=== PATIENT | female | born 1950 | race Caucasian/White ===

== ENCOUNTER 2025-06-20 09:58 | Observation (INO) ==
[2025-06-20 10:23] LABS: HCT - HEMATOCRIT 52.1 % (37.0-47.0); HGB - HEMOGLOBIN 17.2 g/dL (12.0-16.0); MEAN PLATELET VOLUME 9.9 fL (7.9-10.8); NRBC ABSOLUTE COUNT (AUTO) 0.00 x10^3/uL; NUCLEATED RED BLOOD CELLS AUTO 0.0 /100WBC; PLT - PLATELET COUNT 188 10^3/uL (130-450); RED CELL DISTRIBUTION WIDTH 14.2 % (12.0-15.0)
[2025-06-20 10:29] LABS: INR 1.0 (0.8-1.2); PT - PROTHROMBIN TIME 11.0 secs (9.9-12.6)
--- NOTE | 2025-06-20 10:35 | CT Report ---
PROCEDURE: CT Head W/O Stroke Protocol INDICATIONS: slurred speech, new, AMS TECHNIQUE: Noncontrast angled axial sections acquired from the foramen magnum to the vertex, with coronal reformats. For radiation dose reduction, the following was used: automated exposure control, adjustment of mA and/or kV according to patient size. COMPARISON: None FINDINGS: Image quality: Excellent. The ventricular system and cortical sulci demonstrate atrophy, consistent for patient's stated age. There are areas of hypodensity in the periventricular and subcortical white matter. There is no acute intra or extra-axial fluid collection. No acute hemorrhage, mass lesion or midline shift. Brainstem is unremarkable. Globes are symmetrical. Sinuses are aerated. Osseous structures are intact. IMPRESSION: 1. No acute intracranial process. 2. Mild atrophy and chronic microvascular ischemic changes. The above findings were discussed with the ordering physician on 06/20/2025 at 10:32 AM This study fulfills neurological imaging criteria for inclusion or exclusion of acute stroke therapies based on available published neurological imaging guidelines. Reviewed by: Gay Byrnes MD on 06/20/2025 10:33 AM PDT Approved by: Gay Byrnes MD on 06/20/2025 10:33 AM PDT Station ID: [id number]
[2025-06-20 10:36] LABS: ALT ALANINE AMINOTRANSFERASE 14.0 IU/L (10-60); AST ASPARTATE AMINOTRANSFERASE 21.0 IU/L (10-42); BUN - BLOOD UREA NITROGEN 12.0 mg/dL (6-20); CARBON DIOXIDE - CO2 28.0 mmol/L (21-32); CREATININE 0.8 mg/dL (0.6-1.3); GFR - MDRD 70.0 (>89)
--- NOTE | 2025-06-20 10:37 | CT Report ---
PROCEDURE: CT Angio Head/Neck INDICATIONS: CVA sx CONTRAST: OMNI 300 80 ML TECHNIQUE: After the administration of intravenous contrast, images werenacquired from the aortic arch through the [place]. 3-dimensional wyabruh-lffrllvkf-wglbywsfiv (MIP) and volume rendering reformats were acquired of the central intracranial vasculature and neck separately. COMPARISON: CT head 06/20/2025 FINDINGS: Image quality: Diagnostic. Cerebral CT Angiogram: Internal carotid arteries: No acute findings. Intracranial ICA are patent with no significant stenosis. No occlusion. No aneurysm. Anterior cerebral arteries: Unremarkable. No significant stenosis. No occlusion. No aneurysm. Middle cerebral arteries: Unremarkable. No significant stenosis. No occlusion. No aneurysm. Posterior cerebral arteries: Unremarkable. No significant stenosis. No occlusion. No aneurysm. Basilar artery: Unremarkable. No significant stenosis. No occlusion. No aneurysm. Vertebral arteries: Unremarkable as visualized. Dural venous sinuses: Unremarkable given phase of enhancement. Other: Arterial phase appearance of the brain parenchyma is unremarkable. Neck CT Angiogram: Internal carotid arteries: Unremarkable. No significant stenosis. No dissection or occlusion. Common carotid arteries: Unremarkable. No significant stenosis. No dissection or occlusion. External carotid arteries: Unremarkable. No occlusion. Vertebral arteries: Unremarkable. No significant stenosis. No dissection or occlusion. Aortic Arch and Mediastinum: Partially visualized aortic arch unremarkable without evidence of aneurysm. Origins of the great vessels unremarkable. Other: Arterial phase soft tissues of the neck and chest are unremarkable. IMPRESSION: Unremarkable CT angiogram of the head and neck The estimate of stenosis included in the report of the imaging study was calculated using the NASCET method Reviewed by: Gay Byrnes MD on 06/20/2025 10:35 AM PDT Approved by: Gay Byrnes MD on 06/20/2025 10:35 AM PDT Station ID: [id number]
[2025-06-20] MEDS: ASPIRIN CHEW 81 MG TABLET PO SCH (11:38)
[2025-06-20] MEDS: CLOPIDOGREL 75 MG TABLET PO SCH (11:38)
--- NOTE | 2025-06-20 12:01 | HISTORY & PHYSICAL EXAMINATION ---
Chief Complaint Chief Complaint Chief Complaint: slurred speech History of Present Illness Admitted From Admitted From:: home History Obtained From Records Reviewed: none available. History obtained from: patient and daughter History of Present Illness HPI Comment/Other: 74 yo female with PMHx of vestibular migraine, mitral valve regurg, presents to the ED with sudden onset of slurred speech and disorientation which progressed to dysphagia about 1.5 hours prior to presentation to ED. She and her daughter were having and emotionally charged conversation when she had sudden onset of symptoms: she became tremulous, had aphasia, then stuttering. The symptoms have been persistent with the stutering since that time. This morning, she woke up, drank some water, and went to a spin class. She then came home, and the event happened. She denies ataxia, denies orthostatic symptoms, she continues to stutter since admission, I am seeing her after MRI is complete. She lives alone, and splits her time between [place], [place] and [place]. Her daughter happened to be here visitiing. Meds/Allgy Home Medications Ambulatory Orders Medication Instructions Recorded Confirmed omalizumab 150 mg/mL subcutaneous 150 mg subcut .once monthly 06/20/25 06/20/25 syringe (Xolair) sumatriptan succinate 25 mg tablet 25 mg PO Q2H PRN mi graine headache 06/20/25 06/20/25 Allergies Allergies Allergy/AdvReac Type Severity Reaction Status Date / Time No Known Drug Allergies Allergy Verified 06/20/25 10:08 PFSH Active Problems All Active Problems (Updated 06/20/25 @ 12:06 by TIFFANY Fay) Elevated hemoglobin (Acute) Stroke-like symptoms (Acute) Confusion (Acute) Altered mental status (Acute) Social History Social History (Updated 06/20/25 @ 18:58 by Stiven Brady MD) Smoking Status: Smoker current status unk Level: Independent Do you feel safe in your home environment?: Yes History of physical, verbal, emotional, or financial abuse?: No POLST Patient has POLST: No Review of Systems Status of ROS: 10 or more systems reviewed and unremarkable except as noted in history and below Prior Level of Functionality: independent. went to a spin class this AM Exam Exam Vital Signs: Vital Signs x48h Temp Pulse Resp BP Pulse Ox 06/20/25 21:05 36.7 C 52 L 18 137/76 H 96 06/20/25 15:37 37.2 C 58 L 18 124/70 98 Constitutional normal general appearance, no apparent distress and average body habitus fit female who appears younger than stated age. HENMT normocephalic, head/scalp atraumatic, hearing grossly normal bilaterally, external ears normal, nasal mucous membranes normal, oral mucous membranes normal and oropharynx normal Eyes EOMs intact bilaterally and conjunctivae normal Neck/C-Spine visual inspection normal and trachea midline Lymph no lymphadenopathy noted Chest inspection of chest normal Respiratory breath sounds equal bilaterally, normal respiratory effort and clear to auscultation bilaterally Cardiovascular normal heart rate noted Gastrointestinal abdomen normal to inspection and abdomen soft to palpation Extremities normal to inspection, normal to palpation and no tenderness Neurology no movement abnormality noted, no focal motor deficit noted, no sensory deficits noted, gait normal, speech normal (stuttering that comes and goes during interview, but at times is profound. ) and GCS 15 Psychiatry mental status grossly normal, oriented x3, thought process normal, cooperative, affect normal and memory normal Skin skin color normal and no rash Conclusion/Plan Problem List (1) Altered mental status: Plan: Sudden onset this AM after coming home from exercise class and having an emotionally charged conversation with her daughter. she has history of vestibular migraine headaches as well as mitral regurgitation. She thinks that maybe she had a mild CVA in the past, but she is not sure. She has been feeling well up until this happened. her urine does not show infection. She has this persistent stuttering. She is healthy- takes occasional meds for her vestibular migraines, cannot recall what these are, and takes Xolair monthly for allergies. She took 4 asa at onset of symptoms. I will continue her on ASA 81mg daily and Plavix 75mg daily. She will have completion of CVA workup- MRI is completed but read is pending. I will monitor telemetry overnight. I will check echocardiogram. She will also be placed on a statin. She thinks she took a statin in the past, but stopped it. no adverse effects from this med in the past. (2) Elevated hemoglobin: Plan: I do not have any historical labs on this patient. her elevated Hgb could be due to dehydration as she drank some water, then went to exercise, and did not drink afterwards. I have encouraged po fluids and will jonnie Hgb in the AM. Laboratory Tests 06/20/25 10:17 Hgb 17.2 H Hct 52.1 H Plan I have spent 77 minutes in the care of this patient today. This includes time [id number], review and ordering of diagnostic imaging and laboratory studies and consultation with other providers. Lab Results Lab results reviewed: Yes 06/20/25 10:17 06/20/25 10:17 Diagnostic Imaging Results Diagnostic Imaging Results Comments: CT head negative CTA head neck negative EKG Results EKG Interpreted Independently: Yes EKG Findings: Sinus bradycardia 49 this patient is cardiovascularly fit Core Measures Anticipated LOS I expect patient to be DC'd or transferred within 96 hours.: Yes DVT/VTE - Prophylaxis VTE/DVT Device ordered at admit?: Yes VTE/DVT Prophylaxis med ordered at admit?: Yes
--- NOTE | 2025-06-20 12:48 | MRI Report ---
PROCEDURE: MRI Brain WO INDICATIONS: Potential stroke, speech stuttering TECHNIQUE: Multisequence MRI of the brain was performed without intravenous contrast. COMPARISON: Same-day CT FINDINGS: Image quality: Diagnostic CSF spaces: Basal cisterns are patent. Lateral ventricles are symmetric. Volume: Periventricular white matter signal abnormality is commonly seen with chronic microangiopathy. Volume loss is present. These findings are mild to moderate Brain: No acute infarct. No hematoma identified. No significant area of parenchymal edema Craniofacial structures: Mild paranasal sinus mucosal thickening. IMPRESSION: No acute infarct or hematoma Reviewed by: Patrick Gu MD on 06/20/2025 12:46 PM PDT Approved by: Patrick Gu MD on 06/20/2025 12:46 PM PDT Station ID: [id number]
[2025-06-20] MEDS ORDERED: oxyCODONE 5 MG TABLET PO PRN (12:55)
[2025-06-20] MEDS ORDERED: ONDANSETRON 4 MG/2 ML VIAL IVP PRN (12:55)
[2025-06-20] MEDS ORDERED: SODIUM CHLORIDE FLUSH 0.9% 10 ML SYRINGE IVP PRN (12:55)
[2025-06-20] MEDS ORDERED: ACETAMINOPHEN 325 MG TABLET PO PRN (12:55)
[2025-06-20] MEDS: ENOXAPARIN 40 MG/0.4 ML SYRINGE SUBQ SCH (14:17)
--- NOTE | 2025-06-20 14:22 | PHARMACY PROGRESS NOTE ---
Best Possible Medication History Admit Date and Time: 06/20/25 [id number] Home Medications Medication Instructions Recorded Confirmed Type omalizumab 150 mg/mL subcutaneous 150 mg subcut .once monthly 06/20/25 06/20/25 History syringe (Xolair) sumatriptan succinate 25 mg tablet 25 mg PO Q2H PRN mi graine headache 06/20/25 06/20/25 History Processed by: Pharmacy (Medication reconciliation completed by [employer]) Medications reviewed in ED?: No Medication History completed: Yes Patient Interview: Completed Secondary Source(s): Pharmacy records and Insurance records [facility] Statement: As the person ultimately responsible for medication therapy, providers are able to order a medication from an existing home medication list in [facility] via the "Reconcile Routine" prior to Confirmation of that medication by technical support coordinator. Such practice is discouraged except when the physician, in their clinical judgment, deems that a medical need exists for a medication without regard to previous use.
--- NOTE | 2025-06-20 17:21 | ED Physician Documentation ---
History of Present Illness Stated complaint Stated Complaint: SLURRING WORDS, CONFUSION, DIFF WALKING, SHAKES Chief complaint Chief Complaint: Neuro Additonal information Additional information: Patient is a 74-year-old female who presents today for concerns for stroke. Patient is accompanied by daughter. Patient is otherwise relatively healthy according to daughter at bedside. Daughter shares that about a year ago they thought she may have had a TIA. Patient woke up normal, at baseline she ambulates, has no word finding difficulties normally. At 830 this morning, suddenly patient developed word finding difficulties, with slurring speech, stuttering. Daughter shared that she seemed confused, and had to sit down. There were no falls. Patient arrived to the ER roughly an hour and a half after this at about 10 AM. Patient is able to understand what I am telling her, but has significant difficulty answering my questions. Ambulating, moving all extremities, sensation is intact. No neglect, motor drift, initial NIHSS of 3. Due to acuity of condition patient is otherwise unable to contribute to further ROS questioning. Review of Systems Status of ROS: See HPI Meds/Allgy Home Medications Ambulatory Orders Medication Instructions Recorded Confirmed omalizumab 150 mg/mL subcutaneous 150 mg subcut .once monthly 06/20/25 06/20/25 syringe (Xolair) sumatriptan succinate 25 mg tablet 25 mg PO Q2H PRN mi graine headache 06/20/25 06/20/25 Allergies Allergies Allergy/AdvReac Type Severity Reaction Status Date / Time No Known Drug Allergies Allergy Verified 06/20/25 10:08 PFSH Active Problems All Active Problems (Updated 06/20/25 @ 12:06 by TIFFANY Fay) Elevated hemoglobin (Acute) Stroke-like symptoms (Acute) Confusion (Acute) Altered mental status (Acute) Social History Social History Smoking Status: Smoker current status unk Level: Independent Do you feel safe in your home environment?: Yes History of physical, verbal, emotional, or financial abuse?: No Exam Exam Vital Signs: Vital Signs x48h Pulse Resp BP Pulse Ox 06/20/25 10:58 63 18 158/74 H 97 Constitutional Appears stated age, sitting up in triage area chair. Tremulous. Distressed. HENMT normocephalic and head/scalp atraumatic Eyes Pupils are 3 mm and reactive bilaterally. No nystagmus. Visual alcantar intact to confrontation bilaterally. Neck/C-Spine visual inspection normal, trachea midline and cervical spine nontender Respiratory breath sounds equal bilaterally and normal respiratory effort Clear to auscultation bilaterally Cardiovascular Hypertensive to the 160s, regular rate and rhythm. Normal S1-S2, no murmurs. Gastrointestinal abdomen soft to palpation, nontender to palpation, nontender to percussion and nondistended Back/Pelvis no thoracic spine tenderness, no lumbar spine tenderness and thoracic spine ROM normal Extremities normal to inspection and normal to palpation Neurology Severe stuttering, dysarthria. Cranial nerves II through XII appear intact. Strength is 5 out of 5 in bilateral upper and lower extremities. No drift in bilateral upper or lower extremities. No Abilio neglect. Sensation intact to habitus. Patellar reflexes 2+ bilaterally. Ambulating without difficulty. NIHSS 3 Psychiatry Tearful, flat affect. Results Vitals Vitals: Vital Signs - 24 hr 06/20/25 10:08 06/20/25 10:58 Temperature 36.7 C Temperature Source Temporal Artery Scan Pulse Rate 58 L 63 Respiratory Rate 18 18 Blood Pressure 163/94 H 158/74 H O2 Saturation 97 97 O2 Source Room air Room air Pain Intensity 0 Oxygen O2 Source Room air Labs Labs: Laboratory Tests 06/20/25 06/20/25 10:06 10:17 WBC 5.4 RBC 5.20 Hgb 17.2 H Hct 52.1 H MCV 100.2 H MCH 33.1 H MCHC 33.0 RDW 14.2 Plt Count 188 MPV 9.9 Neut # (Auto) 3.6 Lymph # (Auto) 1.3 L [place] # (Auto) 0.4 Eos # (Auto) 0.0 Baso # (Auto) 0.0 Absolute Nucleated RBC 0.00 Nucleated RBC % 0.0 ESR 1 PT 11.0 INR 1.0 Sodium 140 Potassium 4.3 Chloride 105 Carbon Dioxide 28 Anion Gap 7.0 BUN 12 Creatinine 0.8 Estimated GFR (MDRD) 70 L Glucose 99 POC Whole Bld Glucose 92 Calcium 10.4 H Total Bilirubin 1.0 AST 21 ALT 14 Alkaline Phosphatase 62 Total Protein 7.6 Albumin 4.8 Globulin 2.8 Albumin/Globulin Ratio 1.7 Lipase 32 PD Medical Decision Making ED course ED course: Assessment: Presented to the ER for concerns of stroke, roughly 1-1/2 hours after symptoms began with severe stuttering, word finding difficulty. Patient otherwise has an NIHSS of 3 during my examination, ambulating without difficulty, moving all extremities, appears to understand questioning. Stroke stop protocol started, and patient went quickly to CT scan for CT Noncon and CTA head and neck. DDx: Embolic stroke, thalamic stroke, posterior circulation stroke, TIA, dehydration, malnutrition, electrolyte abnormality, hypoglycemia, etc. Workup: CBC appears hemoconcentrated, otherwise labs grossly unremarkable. CTA head neck unremarkable. CT head unremarkable,/not acute. Treatment: Clopidogrel, aspirin Discussion: Teleneurologist, thinks less likely that this patient has a stroke, and rated her NIHSS as a 2. Did think that it would be worth getting an MRI of the brain as thalamic strokes can sometimes present such as this. Her stuttering did improve, and patient is able to answer questions but it takes a very long time. Otherwise did not develop any new focal deficits and remained stable in the ER. Due to the prolonged nature of her workup for MRI, elected to admit her to the hospital. Patient was agreeable with this plan. May be somewhat dehydrated, no other Rolanda abnormality explains her symptoms. Discharge Plan Discharge Patient Disposition: ED Place in Observation Condition: Stable Clinical Impression: Altered mental status, Confusion, Stroke-like symptoms Interventions: ED Admission Assessment Last Done: 06/20/25 13:04 Vitals documented within 30 minutes of discharge?: Yes
[2025-06-20] MEDS: SODIUM CHLORIDE FLUSH 0.9% 10 ML SYRINGE IVP SCH (18:11)
[2025-06-20 19:07] LABS: GLUCOSE, URINE (UA) NEGATIVE (NEGATIVE); KETONES,URINE (UA) NEGATIVE (NEGATIVE); OCCULT BLOOD,URINE NEGATIVE (NEGATIVE); SQUAMOUS EPITHELIAL CELL,UR NONE SEEN (<= Few)
[2025-06-21 04:14] VITALS: O2SAT 97
[2025-06-21 05:27] LABS: HCT - HEMATOCRIT 45.5 % (37.0-47.0); HGB - HEMOGLOBIN 15.7 g/dL (12.0-16.0); MEAN PLATELET VOLUME 9.9 fL (7.9-10.8); NRBC ABSOLUTE COUNT (AUTO) 0.00 x10^3/uL; NUCLEATED RED BLOOD CELLS AUTO 0.0 /100WBC; PLT - PLATELET COUNT 159 10^3/uL (130-450); RED CELL DISTRIBUTION WIDTH 14.3 % (12.0-15.0)
[2025-06-21 05:45] LABS: BUN - BLOOD UREA NITROGEN 10.0 mg/dL (6-20); CARBON DIOXIDE - CO2 26.0 mmol/L (21-32); CREATININE 0.7 mg/dL (0.6-1.3); GFR - MDRD 82.0 (>89)
--- NOTE | 2025-06-21 12:09 | Discharge Summary ---
Discharge Summary Admit Date: 06/20/25 Discharge Date: 06/21/25 Discharging Provider: Gurpreet [place] Primary Care Provider: [id number] PCP Code Status: Attempt Resuscitation DIAGNOSES Admission Diagnoses: AMS Elevated hemoglobin Discharge Diagnoses with Status of Each Condition: AMSMRI negative for stroke. This is either TIA or complex migraine Elevated hemoglobinresolved. Likely hemoconcentration on presentation HPI History of Present Illness: 74 yo female with PMHx of vestibular migraine, mitral valve regurg, presents to the ED with sudden onset of slurred speech and disorientation which progressed to dysphagia about 1.5 hours prior to presentation to ED. She and her daughter were having and emotionally charged conversation when she had sudden onset of symptoms: she became tremulous, had aphasia, then stuttering. The symptoms have been persistent with the stutering since that time. This morning, she woke up, drank some water, and went to a spin class. She then came home, and the event happened. She denies ataxia, denies orthostatic symptoms, she continues to stutter since admission, I am seeing her after MRI is complete. She lives alone, and splits her time between [place], [place] and [place]. [facility] HOSPITAL COURSE Hospital Course: Patient was placed in observation and underwent MRI which showed no acute infarct. Echo was not available, so she was encouraged to have this done in the outpatient setting. Her symptoms have resolved. I have encouraged her to reach out to her PCP for an outpatient speech therapy consult. I am discharging her on aspirin and Lipitor ALLERGIES Allergies Allergy/AdvReac Type Severity Reaction Status Date / Time No Known Drug Allergies Allergy Verified 06/20/25 10:08 MEDICATIONS Ambulatory Orders Medication Instructions Recorded Confirmed omalizumab 150 mg/mL subcutaneous 150 mg subcut .once monthly 06/20/25 06/20/25 syringe (Xolair) sumatriptan succinate 25 mg tablet 25 mg PO Q2H PRN mi graine headache 06/20/25 06/20/25 aspirin 81 mg tablet,delayed 81 mg PO DAILY #30 tabs 0 06/21/25 release atorvastatin 80 mg tablet (Lipitor) 80 mg PO DAILY #30 tabs 06/21/25 PHYSICAL EXAM AT DISCHARGE Vital Signs: Vital Signs x48h Temp Pulse Resp BP Pulse Ox 06/21/25 12:30 36.7 C 53 L 16 146/76 H 97 General Appearance: positive No acute distress and Alert Eyes Bilateral: positive Normal inspection ENT: positive ENT inspection nml Neck: positive Nml inspection Respiratory: positive Chest non-tender and No respiratory distress Cardiovascular: positive Regular rate & rhythm Abdomen: positive Non-tender Skin: positive Color nml Extremities: positive Non-tender Neurologic/Psychiatric: positive Oriented x3 LABS 06/21/25 05:19 06/21/25 05:19 FOLLOW UP Follow Up: With PCP TIME SPENT Time Spent in Discharge (Minutes): 38 Discharge Plan Discharge Patient Disposition: Home, Self Care Condition: Stable Prescriptions: New aspirin 81 mg tablet,delayed release (DR/EC) 81 mg PO DAILY Qty: 30 2RF atorvastatin [Lipitor] 80 mg tablet 80 mg PO DAILY Qty: 30 2RF Continued sumatriptan succinate 25 mg tablet 25 mg PO Q2H PRN (Reason: migraine headache) Rx Instructions: maximum of 8 tablets in 24 hours Xolair 150 mg/mL syringe 150 mg SUBCUT .once monthly Diet: Regular Interventions: Belongings Inventory Last Done: 06/20/25 13:23 Discharge Last Done: 06/21/25 13:46 Discharge Checklist - Nursing Last Done: 06/21/25 13:46 Discharge Vital Signs (30 Minutes) Last Done: 06/21/25 12:30 Health Concerns: You came into the hospital with symptoms concerning for stroke. You were held in observation and worked up for this. You were seen by a teleneurologist, who recommended that you be placed on high-dose Lipitor. I am ordering this, as well as a baby aspirin that would like for you to take until otherwise directed by your PCP. Your symptoms have resolved, and your MRI shows no evidence of stroke. This was likely an episode of transient ischemic attack versus a complex migraine. I would like for you to follow-up with your PCP, and would recommend you undergo outpatient speech therapy consultation Print Language: Bruneian Patient Instructions: TIA Dc Stand Alone Forms: PCP List Vitals documented within 30 minutes of discharge?: Yes
[2025-06-21 13:51] VITALS: BP 146/76; TEMP 98.1
[2025-06-21] MEDS ORDERED: ATORVASTATIN 40 MG TABLET PO SCH (21:00)
== END 2025-06-21 12:45 | disposition home or self-care (01) ==
LOC: ED 09:58 → MS2 09:58
PROVIDERS: ADMIT Physician Assistant Medical; ATTEND Physician Assistant Medical